=== PATIENT | male | born 1955 | race African-American/Black ===

== ENCOUNTER 2017-07-27 13:08 | Inpatient (IN) ==
[2017-07-27 14:39] LABS: Basophils % 0.4 % (0.0-0.8); Eosinophils # 0.2 10*3/uL (0.0-0.87); Eosinophils % 1.8 % (0.00-10.9); Hematocrit 37.3 VOL% (42.0-52.0); Hemoglobin 12.1 GM/DL (14.0-18.0); Immature Granulocytes % 0.4 %; Immature Granulocytes Absolute 0.04 #; Lymphocytes # 3.3 10*3/uL (1.4-4.0); Lymphocytes % 35.2 % (21.2-54.2); Mean Corpuscular HGB Conc 32.4 GM/DL (32-36); Mean Corpuscular Hemoglobin 28 PG (27-34); Mean Corpuscular Volume 85.7 FL (87-102); Mean Platelet Volume 11.1 FL (9.6-12.0); Monocytes # 0.7 10*3/uL (0.11-0.8); Monocytes % 7.6 % (1.7-12.7); Neutrophils # 5.1 10*3/uL (1.4-7.4); Neutrophils % 54.6 % (38.7-73.9); Platelet Count 327 T/CUMM (130-400); Red Blood Count 4.35 MC/CUMM (3.8-5.5); Red Cell Distribution Width 14.8 % (9.3-17.3); White Blood Count 9.3 T/CUMM (4-12)
[2017-07-27 14:51] LABS: Lactic Acid 1.7 MMOL/L (0.4-2.0)
[2017-07-27 14:54] LABS: Albumin 3.3 G/DL (3.4-5.0); Bilirubin,Total 0.6 MG/DL (0.2-1.0); Calcium 9.3 MG/DL (8.5-10.1); Osmolality,Calculated 274.7 MOS/KG (273-304); Potassium 4.4 MMOL/L (3.5-5.1); Total Protein 8.3 G/DL (6.4-8.3)
[2017-07-27] MEDS ORDERED: MORPHINE 2 MG/1 ML SYRINGE IV STA (15:38)
[2017-07-27] MEDS ORDERED: ONDANSETRON 4 MG/2 ML VIAL IV STA (15:38)
[2017-07-27] MEDS ORDERED: ONDANSETRON 4 MG/2 ML VIAL ONE (15:43)
[2017-07-27] MEDS ORDERED: MORPHINE 2 MG/1 ML SYRINGE ONE (15:43)
[2017-07-27] MEDS ORDERED: VANCOMYCIN INJ 1,000 MG in SODIUM CHLORIDE 0.9% 250 ML IV STA (15:48)
[2017-07-27] MEDS ORDERED: VANCOMYCIN 1,000 MG VIAL ONE (16:00)
[2017-07-27 16:36] LABS: Apearance,Urine CLOUDY (Clear); Bacteria,Urine Moderate /HPF (Few); Bilirubin,Urine Negative (Negative); Blood, Urine Small mg/dL (Negative); Glucose,Urine (UA) Negative (Negative); Ketones,Urine Negative (Negative); Mucus,Urine Many /LPF (Occasional); Nitrite,Urine Negative (Negative); Protein,Urine 30 MG/DL; Urine Color Yellow (Yellow); Urine Specific Gravity 1.014 (1.001-1.035); Urine Urobilinogen < 2.0 EU/DL (0.2-1.0); WBC,Urine 51 /HPF (0-6)
[2017-07-27] MEDS ORDERED: ZALEPLON 5 MG CAPSULE PO PRN (17:02)
[2017-07-27] MEDS ORDERED: ONDANSETRON 4 MG/2 ML VIAL IV PRN (17:02)
[2017-07-27] MEDS ORDERED: ACETAMINOPHEN 325 MG TABLET PO PRN ×2 (17:02→17:05)
[2017-07-27] MEDS ORDERED: DEXTROSE 50% 25 GM/50 ML VIAL IV PRN (18:13)
[2017-07-27] MEDS ORDERED: GLUCAGON 1 MG VIAL IM PRN (18:13)
[2017-07-27] MEDS ORDERED: INFLUENZA VIRUS VACCINE 0.5 ML SYRINGE IM ONE (19:51)
[2017-07-27] MEDS ORDERED: VANCOMYCIN INJ 1,250 MG in SODIUM CHLORIDE 0.9% 500 ML IV SCH (20:00)
[2017-07-27] MEDS: INSULIN LISPRO 100 UNIT/ML SUBCUT SCH (21:05)
[2017-07-27] MEDS: PIPERACILLIN/TAZOBACTAM 3,375 MG in SODIUM CHLORIDE 0.9% 100 ML IV SCH (21:16)
[2017-07-27] MEDS: SODIUM CHLORIDE 0.9% 1,000 ML IV SCH (21:16)
[2017-07-27] MEDS: METOPROLOL TARTRATE 100 MG TABLET PO SCH (21:19)
[2017-07-27] MEDS: ASCORBIC ACID 500 MG TABLET PO SCH (21:19)
[2017-07-27] MEDS: BACLOFEN 10 MG TABLET PO SCH (21:19)
[2017-07-27] MEDS: ATORVASTATIN 20 MG TABLET PO SCH (21:19)
[2017-07-27] MEDS: DOCUSATE SODIUM 100 MG CAPSULE PO SCH (21:20)
[2017-07-27] MEDS: GABAPENTIN 100 MG CAPSULE PO SCH (21:20)
[2017-07-28] MEDS: VANCOMYCIN INJ 1,250 MG in SODIUM CHLORIDE 0.9% 250 ML IV SCH ×2 (01:07→10:25)
[2017-07-28] MEDS: PIPERACILLIN/TAZOBACTAM 3,375 MG in SODIUM CHLORIDE 0.9% 100 ML IV SCH ×3 (05:00→20:50)
[2017-07-28 05:06] LABS: Basophils % 0.5 % (0.0-0.8); Eosinophils # 0.2 10*3/uL (0.0-0.87); Eosinophils % 2.7 % (0.00-10.9); Hematocrit 31.4 VOL% (42.0-52.0); Hemoglobin 10.3 GM/DL (14.0-18.0); Immature Granulocytes % 0.4 %; Immature Granulocytes Absolute 0.03 #; Lymphocytes # 3.8 10*3/uL (1.4-4.0); Lymphocytes % 46.3 % (21.2-54.2); Mean Corpuscular HGB Conc 32.8 GM/DL (32-36); Mean Corpuscular Hemoglobin 28 PG (27-34); Mean Corpuscular Volume 85.3 FL (87-102); Mean Platelet Volume 11.8 FL (9.6-12.0); Monocytes # 0.6 10*3/uL (0.11-0.8); Monocytes % 7.1 % (1.7-12.7); Neutrophils # 3.5 10*3/uL (1.4-7.4); Platelet Count 282 T/CUMM (130-400); Red Blood Count 3.68 MC/CUMM (3.8-5.5); Red Cell Distribution Width 14.7 % (9.3-17.3); White Blood Count 8.2 T/CUMM (4-12)
[2017-07-28 05:37] LABS: Bilirubin,Total 0.7 MG/DL (0.2-1.0); Calcium 8.6 MG/DL (8.5-10.1); Magnesium 1.7 MG/DL (1.8-2.4); Osmolality,Calculated 276.5 MOS/KG (273-304); Potassium 4.3 MMOL/L (3.5-5.1); Total Protein 7.3 G/DL (6.4-8.3)
[2017-07-28] MEDS: SODIUM CHLORIDE 0.9% 1,000 ML IV SCH ×2 (06:28→16:36)
[2017-07-28] MEDS ORDERED: NON-FORMULARY MEDICATION (Omeprazole [Prilosec] 20 MG) PO SCH (07:30)
[2017-07-28] MEDS: INSULIN LISPRO 100 UNIT/ML SUBCUT SCH ×4 (08:53→20:53)
[2017-07-28] MEDS: SENNA 8.6 MG TABLET PO SCH (09:04)
[2017-07-28] MEDS: PANTOPRAZOLE 40 MG TABLET PO SCH (09:05)
[2017-07-28] MEDS: METOPROLOL TARTRATE 100 MG TABLET PO SCH ×2 (09:05→20:52)
[2017-07-28] MEDS: DOCUSATE SODIUM 100 MG CAPSULE PO SCH ×2 (09:05→20:52)
[2017-07-28] MEDS: ASPIRIN EC 81 MG TABLET PO SCH (09:05)
[2017-07-28] MEDS: ASCORBIC ACID 500 MG TABLET PO SCH ×2 (09:05→20:52)
[2017-07-28] MEDS: GABAPENTIN 100 MG CAPSULE PO SCH ×3 (09:05→20:52)
[2017-07-28] MEDS: BACLOFEN 10 MG TABLET PO SCH ×3 (09:05→20:52)
[2017-07-28] MEDS: amLODIPine 10 MG TABLET PO SCH (09:05)
[2017-07-28] MEDS: ZINC SULFATE 220 MG CAPSULE PO SCH (09:05)
[2017-07-28] MEDS: SKIN HEALING OINT (AQUAPHOR) 50 GM TUBE TOP PRN (14:33)
[2017-07-28] MEDS: ZINC OXIDE PASTE 113 GM TUBE TOP SCH ×2 (14:33→20:57)
[2017-07-28] MEDS ORDERED: VANCOMYCIN INJ 1,250 MG in SODIUM CHLORIDE 0.9% 250 ML IV SCH (18:00)
[2017-07-28] MEDS: ATORVASTATIN 20 MG TABLET PO SCH (18:15)
[2017-07-29 02:29] LABS: Basophils % 0.5 % (0.0-0.8); Eosinophils # 0.3 10*3/uL (0.0-0.87); Eosinophils % 3.7 % (0.00-10.9); Hematocrit 33.6 VOL% (42.0-52.0); Hemoglobin 10.8 GM/DL (14.0-18.0); Immature Granulocytes % 0.4 %; Immature Granulocytes Absolute 0.03 #; Lymphocytes # 2.3 10*3/uL (1.4-4.0); Lymphocytes % 28.5 % (21.2-54.2); Mean Corpuscular HGB Conc 32.1 GM/DL (32-36); Mean Corpuscular Hemoglobin 28 PG (27-34); Mean Corpuscular Volume 85.9 FL (87-102); Mean Platelet Volume 12.2 FL (9.6-12.0); Monocytes # 0.6 10*3/uL (0.11-0.8); Monocytes % 7.4 % (1.7-12.7); Neutrophils # 4.8 10*3/uL (1.4-7.4); Neutrophils % 59.5 % (38.7-73.9); Platelet Count 189 T/CUMM (130-400); Red Blood Count 3.91 MC/CUMM (3.8-5.5); Red Cell Distribution Width 14.7 % (9.3-17.3); White Blood Count 8.1 T/CUMM (4-12)
[2017-07-29 03:20] LABS: Bilirubin,Total 0.8 MG/DL (0.2-1.0); Calcium 8.8 MG/DL (8.5-10.1); Magnesium 1.8 MG/DL (1.8-2.4); Osmolality,Calculated 275.5 MOS/KG (273-304); Phosphorous 3.6 MG/DL (2.5-4.9); Potassium 4.1 MMOL/L (3.5-5.1); Total Protein 7.5 G/DL (6.4-8.3)
[2017-07-29] MEDS: PIPERACILLIN/TAZOBACTAM 3,375 MG in SODIUM CHLORIDE 0.9% 100 ML IV SCH ×3 (04:57→21:41)
[2017-07-29] MEDS: SODIUM CHLORIDE 0.9% 1,000 ML IV SCH ×2 (04:58→20:48)
[2017-07-29] MEDS ORDERED: VANCOMYCIN INJ 1,250 MG in SODIUM CHLORIDE 0.9% 250 ML IV SCH (06:00)
[2017-07-29] MEDS: ZINC SULFATE 220 MG CAPSULE PO SCH (08:17)
[2017-07-29] MEDS: GABAPENTIN 100 MG CAPSULE PO SCH ×3 (08:17→20:47)
[2017-07-29] MEDS: ASCORBIC ACID 500 MG TABLET PO SCH ×2 (08:17→20:48)
[2017-07-29] MEDS: BACLOFEN 10 MG TABLET PO SCH ×3 (08:17→20:47)
[2017-07-29] MEDS: SENNA 8.6 MG TABLET PO SCH (08:17)
[2017-07-29] MEDS: PANTOPRAZOLE 40 MG TABLET PO SCH (08:17)
[2017-07-29] MEDS: ASPIRIN EC 81 MG TABLET PO SCH (08:18)
[2017-07-29] MEDS: DOCUSATE SODIUM 100 MG CAPSULE PO SCH ×2 (08:18→20:47)
[2017-07-29] MEDS: INSULIN LISPRO 100 UNIT/ML SUBCUT SCH ×4 (08:18→20:48)
[2017-07-29] MEDS: METOPROLOL TARTRATE 100 MG TABLET PO SCH ×2 (08:18→20:47)
[2017-07-29] MEDS: amLODIPine 10 MG TABLET PO SCH (08:18)
[2017-07-29] MEDS: ZINC OXIDE PASTE 113 GM TUBE TOP SCH ×2 (08:18→20:47)
[2017-07-29] MEDS: VANCOMYCIN INJ 1,250 MG in SODIUM CHLORIDE 0.9% 250 ML IV SCH (17:40)
[2017-07-29] MEDS: ATORVASTATIN 20 MG TABLET PO SCH (20:47)
[2017-07-30 02:38] LABS: Basophils # 0.1 10*3/uL (0.0-0.2); Basophils % 0.7 % (0.0-0.8); Eosinophils # 0.3 10*3/uL (0.0-0.87); Hematocrit 30.3 VOL% (42.0-52.0); Hemoglobin 9.9 GM/DL (14.0-18.0); Immature Granulocytes % 0.3 %; Immature Granulocytes Absolute 0.02 #; Lymphocytes # 2.9 10*3/uL (1.4-4.0); Lymphocytes % 38.7 % (21.2-54.2); Mean Corpuscular HGB Conc 32.7 GM/DL (32-36); Mean Corpuscular Hemoglobin 28 PG (27-34); Mean Corpuscular Volume 85.8 FL (87-102); Mean Platelet Volume 10.9 FL (9.6-12.0); Monocytes # 0.5 10*3/uL (0.11-0.8); Monocytes % 6.6 % (1.7-12.7); Neutrophils # 3.7 10*3/uL (1.4-7.4); Neutrophils % 49.7 % (38.7-73.9); Platelet Count 296 T/CUMM (130-400); Red Blood Count 3.53 MC/CUMM (3.8-5.5); Red Cell Distribution Width 14.9 % (9.3-17.3); White Blood Count 7.5 T/CUMM (4-12)
[2017-07-30 02:42] LABS: Calcium 8.6 MG/DL (8.5-10.1); Magnesium 1.6 MG/DL (1.8-2.4); Osmolality,Calculated 281.1 MOS/KG (273-304); Potassium 3.7 MMOL/L (3.5-5.1)
[2017-07-30] MEDS: SODIUM CHLORIDE 0.9% 1,000 ML IV SCH (03:14)
[2017-07-30] MEDS: PIPERACILLIN/TAZOBACTAM 3,375 MG in SODIUM CHLORIDE 0.9% 100 ML IV SCH ×3 (04:17→23:05)
[2017-07-30] MEDS: INSULIN LISPRO 100 UNIT/ML SUBCUT SCH ×4 (08:12→22:12)
[2017-07-30] MEDS: DOCUSATE SODIUM 100 MG CAPSULE PO SCH ×2 (08:42→22:54)
[2017-07-30] MEDS: PANTOPRAZOLE 40 MG TABLET PO SCH (08:42)
[2017-07-30] MEDS: amLODIPine 10 MG TABLET PO SCH (08:42)
[2017-07-30] MEDS: BACLOFEN 10 MG TABLET PO SCH ×3 (08:42→22:12)
[2017-07-30] MEDS: ZINC SULFATE 220 MG CAPSULE PO SCH (08:42)
[2017-07-30] MEDS: ASPIRIN EC 81 MG TABLET PO SCH (08:42)
[2017-07-30] MEDS: SENNA 8.6 MG TABLET PO SCH (08:42)
[2017-07-30] MEDS: ZINC OXIDE PASTE 113 GM TUBE TOP SCH ×2 (08:44→22:12)
[2017-07-30] MEDS: METOPROLOL TARTRATE 100 MG TABLET PO SCH ×2 (08:44→22:12)
[2017-07-30] MEDS: GABAPENTIN 100 MG CAPSULE PO SCH ×3 (08:44→23:05)
[2017-07-30] MEDS: ASCORBIC ACID 500 MG TABLET PO SCH ×2 (08:53→22:12)
[2017-07-30] MEDS: VANCOMYCIN INJ 1,250 MG in SODIUM CHLORIDE 0.9% 250 ML IV SCH (11:54)
[2017-07-30] MEDS: SKIN HEALING OINT (AQUAPHOR) 50 GM TUBE TOP PRN (12:03)
[2017-07-30] MEDS ORDERED: BISACODYL 10 MG SUPP RECTAL PRN (13:09)
[2017-07-30] MEDS ORDERED: ERGOCALCIFEROL 50,000 UNIT CAPSULE PO SCH (17:05)
[2017-07-30] MEDS: ATORVASTATIN 20 MG TABLET PO SCH (22:12)
[2017-07-31 04:52] LABS: Basophils % 0.4 % (0.0-0.8); Eosinophils # 0.3 10*3/uL (0.0-0.87); Eosinophils % 2.8 % (0.00-10.9); Hematocrit 32.1 VOL% (42.0-52.0); Hemoglobin 10.3 GM/DL (14.0-18.0); Immature Granulocytes % 0.3 %; Immature Granulocytes Absolute 0.03 #; Lymphocytes # 3.2 10*3/uL (1.4-4.0); Lymphocytes % 32.1 % (21.2-54.2); Mean Corpuscular HGB Conc 32.1 GM/DL (32-36); Mean Corpuscular Hemoglobin 28 PG (27-34); Mean Corpuscular Volume 86.1 FL (87-102); Mean Platelet Volume 11.3 FL (9.6-12.0); Monocytes # 0.6 10*3/uL (0.11-0.8); Neutrophils # 5.8 10*3/uL (1.4-7.4); Neutrophils % 58.4 % (38.7-73.9); Platelet Count 308 T/CUMM (130-400); Red Blood Count 3.73 MC/CUMM (3.8-5.5); Red Cell Distribution Width 14.7 % (9.3-17.3); White Blood Count 9.9 T/CUMM (4-12)
[2017-07-31 05:26] LABS: Albumin 2.7 G/DL (3.4-5.0); Bilirubin,Total 0.7 MG/DL (0.2-1.0); Calcium 8.7 MG/DL (8.5-10.1); Osmolality,Calculated 275.4 MOS/KG (273-304); Potassium 3.3 MMOL/L (3.5-5.1); Total Protein 7.3 G/DL (6.4-8.3)
[2017-07-31 05:47] LABS: Calcium 8.7 MG/DL (8.5-10.1); Magnesium 1.7 MG/DL (1.8-2.4); Osmolality,Calculated 277.3 MOS/KG (273-304); Potassium 3.4 MMOL/L (3.5-5.1)
[2017-07-31] MEDS: SODIUM CHLORIDE 0.9% 1,000 ML IV SCH ×2 (06:01→17:47)
[2017-07-31] MEDS: VANCOMYCIN INJ 1,250 MG in SODIUM CHLORIDE 0.9% 250 ML IV SCH (06:02)
[2017-07-31] MEDS: INSULIN LISPRO 100 UNIT/ML SUBCUT SCH ×4 (06:47→20:39)
[2017-07-31] MEDS: PIPERACILLIN/TAZOBACTAM 3,375 MG in SODIUM CHLORIDE 0.9% 100 ML IV SCH ×3 (07:22→20:33)
[2017-07-31] MEDS: amLODIPine 10 MG TABLET PO SCH (08:31)
[2017-07-31] MEDS: METOPROLOL TARTRATE 100 MG TABLET PO SCH ×2 (08:31→20:33)
[2017-07-31] MEDS ORDERED: BUPIVACAINE 0.25% 50 ML VIAL ONE (12:30)
[2017-07-31] MEDS: BACLOFEN 10 MG TABLET PO SCH ×3 (13:40→20:33)
[2017-07-31] MEDS: GABAPENTIN 100 MG CAPSULE PO SCH ×3 (13:40→20:33)
[2017-07-31] MEDS: DOCUSATE SODIUM 100 MG CAPSULE PO SCH ×2 (13:40→20:33)
[2017-07-31] MEDS: PANTOPRAZOLE 40 MG TABLET PO SCH (13:40)
[2017-07-31] MEDS: SENNA 8.6 MG TABLET PO SCH (13:41)
[2017-07-31] MEDS: ZINC SULFATE 220 MG CAPSULE PO SCH (13:41)
[2017-07-31] MEDS: ASCORBIC ACID 500 MG TABLET PO SCH ×2 (13:41→20:33)
[2017-07-31] MEDS: ASPIRIN EC 81 MG TABLET PO SCH (14:05)
[2017-07-31] MEDS ORDERED: SEVOFLURANE 1 UNIT/15 MINUTE INH ONE (14:13)
[2017-07-31] MEDS ORDERED: PROPOFOL 200 MG/20 ML VIAL IV ONE (14:13)
[2017-07-31] MEDS ORDERED: ONDANSETRON 4 MG/2 ML VIAL ONE (14:14)
[2017-07-31] MEDS ORDERED: MIDAZOLAM 2 MG/2 ML VIAL ONE (14:14)
[2017-07-31] MEDS ORDERED: fentaNYL 100 MCG/2 ML VIAL ONE (14:14)
[2017-07-31] MEDS ORDERED: MORPHINE 10 MG/1 ML VIAL ONE (14:17)
[2017-07-31] MEDS ORDERED: MORPHINE 10 MG/1 ML VIAL IV ONE (14:30)
[2017-07-31] MEDS: ZINC OXIDE PASTE 113 GM TUBE TOP SCH ×2 (17:44→20:35)
[2017-07-31] MEDS: ATORVASTATIN 20 MG TABLET PO SCH (20:33)
[2017-08-01] MEDS: VANCOMYCIN INJ 1,250 MG in SODIUM CHLORIDE 0.9% 250 ML IV SCH ×2 (02:49→21:14)
[2017-08-01] MEDS: SODIUM CHLORIDE 0.9% 1,000 ML IV SCH ×2 (02:51→12:44)
[2017-08-01] MEDS: PIPERACILLIN/TAZOBACTAM 3,375 MG in SODIUM CHLORIDE 0.9% 100 ML IV SCH ×2 (06:11→13:11)
[2017-08-01] MEDS: INSULIN LISPRO 100 UNIT/ML SUBCUT SCH ×4 (08:34→21:15)
[2017-08-01] MEDS: METOPROLOL TARTRATE 100 MG TABLET PO SCH ×2 (09:44→21:17)
[2017-08-01] MEDS: SENNA 8.6 MG TABLET PO SCH (09:44)
[2017-08-01] MEDS: amLODIPine 10 MG TABLET PO SCH (09:44)
[2017-08-01] MEDS: ASPIRIN EC 81 MG TABLET PO SCH (09:45)
[2017-08-01] MEDS: DOCUSATE SODIUM 100 MG CAPSULE PO SCH ×2 (09:45→21:17)
[2017-08-01] MEDS: PANTOPRAZOLE 40 MG TABLET PO SCH (09:45)
[2017-08-01] MEDS: GABAPENTIN 100 MG CAPSULE PO SCH ×3 (09:45→21:17)
[2017-08-01] MEDS: ZINC SULFATE 220 MG CAPSULE PO SCH (09:45)
[2017-08-01] MEDS: BACLOFEN 10 MG TABLET PO SCH ×3 (09:45→21:17)
[2017-08-01] MEDS: ASCORBIC ACID 500 MG TABLET PO SCH ×2 (09:45→21:17)
[2017-08-01] MEDS: ZINC OXIDE PASTE 113 GM TUBE TOP SCH ×2 (09:46→21:16)
[2017-08-01] MEDS: MORPHINE 2 MG/1 ML SYRINGE IV PRN (10:04)
[2017-08-01] MEDS: ATORVASTATIN 20 MG TABLET PO SCH (19:02)
[2017-08-01] MEDS: ERTAPENEM 1,000 MG in SODIUM CHLORIDE 0.9% 50 ML IV SCH (23:30)
[2017-08-02] MEDS: SODIUM CHLORIDE 0.9% 1,000 ML IV SCH ×3 (00:26→21:42)
[2017-08-02] MEDS: INSULIN LISPRO 100 UNIT/ML SUBCUT SCH ×4 (08:08→21:37)
[2017-08-02] MEDS: GABAPENTIN 100 MG CAPSULE PO SCH ×3 (09:41→21:37)
[2017-08-02] MEDS: PANTOPRAZOLE 40 MG TABLET PO SCH (09:41)
[2017-08-02] MEDS: ZINC SULFATE 220 MG CAPSULE PO SCH (09:41)
[2017-08-02] MEDS: ASCORBIC ACID 500 MG TABLET PO SCH ×2 (09:41→21:37)
[2017-08-02] MEDS: DOCUSATE SODIUM 100 MG CAPSULE PO SCH ×2 (09:42→21:37)
[2017-08-02] MEDS: amLODIPine 10 MG TABLET PO SCH (09:42)
[2017-08-02] MEDS: SENNA 8.6 MG TABLET PO SCH (09:43)
[2017-08-02] MEDS: METOPROLOL TARTRATE 100 MG TABLET PO SCH ×2 (09:43→21:37)
[2017-08-02] MEDS: BACLOFEN 10 MG TABLET PO SCH ×3 (09:44→21:37)
[2017-08-02] MEDS: ASPIRIN EC 81 MG TABLET PO SCH (09:44)
[2017-08-02] MEDS ORDERED: TUBERCULIN SKIN TEST 0.1 ML SYRINGE INTRADERM ONE (14:21)
[2017-08-02] MEDS: MORPHINE 2 MG/1 ML SYRINGE IV PRN (16:23)
[2017-08-02] MEDS: ZINC OXIDE PASTE 113 GM TUBE TOP SCH ×2 (16:41→21:38)
[2017-08-02] MEDS: ATORVASTATIN 20 MG TABLET PO SCH (21:36)
[2017-08-03] MEDS: ERTAPENEM 1,000 MG in SODIUM CHLORIDE 0.9% 50 ML IV SCH (00:12)
[2017-08-03] MEDS: SODIUM CHLORIDE 0.9% 1,000 ML IV SCH (00:20)
[2017-08-03] MEDS: INSULIN LISPRO 100 UNIT/ML SUBCUT SCH (08:37)
[2017-08-03] MEDS: PANTOPRAZOLE 40 MG TABLET PO SCH (08:56)
[2017-08-03] MEDS: GABAPENTIN 100 MG CAPSULE PO SCH (08:56)
[2017-08-03] MEDS: DOCUSATE SODIUM 100 MG CAPSULE PO SCH (08:56)
[2017-08-03] MEDS: SENNA 8.6 MG TABLET PO SCH (08:56)
[2017-08-03] MEDS: ASPIRIN EC 81 MG TABLET PO SCH (08:56)
[2017-08-03] MEDS: BACLOFEN 10 MG TABLET PO SCH (08:56)
[2017-08-03] MEDS: amLODIPine 10 MG TABLET PO SCH (08:57)
[2017-08-03] MEDS: METOPROLOL TARTRATE 100 MG TABLET PO SCH (08:57)
[2017-08-03] MEDS: ASCORBIC ACID 500 MG TABLET PO SCH (08:57)
[2017-08-03] MEDS: ZINC SULFATE 220 MG CAPSULE PO SCH (08:57)
[2017-08-03] MEDS: MORPHINE 2 MG/1 ML SYRINGE IV PRN (09:00)
[2017-08-03] MEDS: SKIN HEALING OINT (AQUAPHOR) 50 GM TUBE TOP PRN (09:08)
[2017-08-03] MEDS ORDERED: TUBERCULIN SKIN TEST 0.1 ML SYRINGE INTRADERM ONE (10:00)
[2017-08-03 11:33] VITALS: BP 157/73
[2017-08-03] MEDS: ZINC OXIDE PASTE 113 GM TUBE TOP SCH (12:21)
[2017-08-04] MEDS ORDERED: LISINOPRIL 5 MG TABLET PO SCH (09:00)
== END 2017-08-03 13:15 | disposition swing bed (61) | DRG 571 ==
LOC: N.ED 13:08 → SUATTDRO 16:51 → N.EDINP 16:51 → N.3E 19:23
PROVIDERS: ADMIT Hospitalist; ATTEND Hospitalist